=== PATIENT | female | born 1970 ===

== ENCOUNTER 2017-03-11 19:19 | Emergency (ER) | payer BC ==
[2017-03-11 19:23] VITALS: BP 137/90; PULSE 100; RESP 16; TEMP 98; O2SAT 98
[2017-03-11] MEDS ORDERED: Bacitracin 500 Units/gm Oint Foilpak UD TOP ONE (19:42)
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
== END 2017-03-11 20:44 | disposition home or self-care (01) ==
LOC: C.ER 19:19
DX: S50.02XA Contusion of left elbow, initial encounter (principal); S00.81XA Abrasion of other part of head, initial encounter; Y00.XXXA Assault by blunt object, initial encounter

== ENCOUNTER 2017-04-27 11:45 | Emergency (ER) | payer BC ==
[2017-04-27 11:56] VITALS: BMI 29.9
[2017-04-27 11:57] VITALS: TEMP 98.7
[2017-04-27] MEDS ORDERED: Sodium Chloride 0.9% 1,000 ML IV ONE (12:31)
--- NOTE | 2017-04-27 12:38 | C.PDOC ---
History Of Present Illness 47 y/o female, history of IDDM, presents to ED with c/o elevated blood sugar for the last 4 days. Patient reports blood sugar has been in the 300s and c/o intermittent headaches, urinary frequency, dry mouth, and mild nausea. Otherwise , denies fever, chills, chest pain, vomiting, SOB, or other associated symptoms. Time Seen by Provider: 04/27/17 12:20 Chief Complaint (Nursing): High Blood Sugar History Per: Patient History/Exam Limitations: no limitations Onset/Duration Of Symptoms: Days Current Symptoms Are (Timing): Still Present Current Diabetic Medications: Insulin Associated Infectious Symptoms: Urinary Frequency, Nausea. denies: Cough, Sore Throat, Vomiting, Diarrhea Recent travel outside of the [place]: No Past Medical History Reviewed: Historical Data, Nursing Documentation, Vital Signs Vital Signs: Last Vital Signs Temp 98.7 F 04/27/17 11:56 Pulse 80 04/27/17 14:17 Resp 15 04/27/17 14:17 BP 130/77 04/27/17 14:17 Pulse Ox 99 04/27/17 14:17 - Medical History PMH: Anxiety, Diabetes, HTN, Hypercholesterolemia - [facility] Procedures OTHER SKIN & SUBQ I D (08/15/13) Family History: States: Unknown Family Hx - Social History Hx Tobacco Use: No Hx Alcohol Use: No Hx Substance Use: No - Immunization History Hx Tetanus Toxoid Vaccination: No Hx Influenza Vaccination: Yes Hx Pneumococcal Vaccination: Yes Review Of Systems Except As Marked, All Systems Reviewed And Found Negative. Constitutional: Negative for: Fever, Chills Cardiovascular: Negative for: Chest Pain Respiratory: Negative for: Cough, Shortness of Breath, Wheezing Gastrointestinal: Positive for: Nausea. Negative for: Vomiting, Diarrhea Genitourinary: Positive for: Frequency Skin: Negative for: Rash Neurological: Positive for: Headache Physical Exam - Physical Exam Appears: Non-toxic, No Acute Distress Skin: Normal Color, Warm, Dry Head: Atraumatic, Normacephalic Eye(s): bilateral: Normal Inspection, EOMI Nose: Normal Oral Mucosa: Moist Lips: Normal Appearing Neck: Normal ROM Chest: Symmetrical Cardiovascular: Rhythm Regular Respiratory: Normal Breath Sounds, No Rales, No Rhonchi, No Wheezing Gastrointestinal/Abdominal: Soft, No Tenderness, No Distention, No Guarding, No Rebound, No Ascites Back: Normal Inspection, No CVA Tenderness Extremity: Bilateral: Atraumatic, Normal Color And Temperature, Normal ROM Neurological/Psych: Oriented x3, Normal Speech Gait: Steady ED Course And Treatment - Laboratory Results Result Diagrams: 04/27/17 12:48 04/27/17 12:48 Lab Interpretation: No Acute Changes O2 Sat by Pulse Oximetry: 97 (RA) Pulse Ox Interpretation: Normal Medical Decision Making Medical Decision Making: Impression: Hyperglycemia Plan: * IVFs * Bloodwork * Reassess Progress: Labs reviewed, glucose was 227. No ketones, no acidosis or signs of DKA Patient reevaluated and resting comfortably in no distress. She reports feeling better than arrival. Explained results. Patient states she has been thinking and realized she has been eating a lot of fruits which may be raising her blood sugar. I advised her to keep monitoring blood sugar and to follow up with PCP Disposition Counseled Patient/Family Regarding: Studies Performed, Diagnosis, Need For Followup - Disposition Referrals: Sonali Astudillo MD [Medical Doctor] - Disposition: HOME/ ROUTINE Disposition Time: 13:45 Condition: STABLE Additional Instructions: Follow up with your primary medical doctor or clinic in 2-5 days for further evaluation. Take your usual medications as prescribed. Return to the emergency department at any time if symptoms persist or worsen. Instructions: Diabetic Hyperglycemia (ED) Forms: [employer] (Icelandic) - POA Present On Arrival: Poor Glycemic Control - Clinical Impression Clinical Impression: Hyperglycemia - PA / WIRE WELDER / Resident Statement MD/DO has reviewed & agrees with the documentation as recorded. - Scribe Statement The provider has reviewed the documentation as recorded by the Jameel Flores All medical record entries made by the Jameel were at my direction and personally dictated by me. I have reviewed the chart and agree that the record accurately reflects my personal performance of the history, physical exam, medical decision making, and the department course for this patient. I have also personally directed, reviewed, and agree with the discharge instructions and disposition.
[2017-04-27] MEDS ORDERED: Sodium Chloride 0.9% 1,000 ML ONE (12:53)
[2017-04-27 12:57] LABS: BASO # 0.1 K/uL (0.0-0.2); BASO % 0.7 % (0.0-2.0); EOS # 0.2 K/uL (0.0-0.7); EOS % 2.2 % (0.0-4.0); HEMATOCRIT 40.4 % (34.0-47.0); LYMPH % 46.6 % (20.0-40.0); MEAN CELL VOLUME 81.1 fL (81.0-99.0); MEAN CORPUSCULAR HEMOGLOBIN 27.4 pg (27.0-31.0); MEAN CORPUSCULAR HGB CONC 33.8 g/dL (33.0-37.0); MEAN PLATELET VOLUME 8.7 fL (7.2-11.7); MONO # 0.5 K/uL (0.0-0.8); NRBC % 0.1 % (0.0-2.0); RED CELL DISTRIBUTION WIDTH 12.9 % (11.5-14.5); WHITE BLOOD COUNT 10.7 K/uL (4.8-10.8)
[2017-04-27 13:06] LABS: ALB/GLOB RATIO 1.3 (1.0-2.1); ALKALINE PHOSPHATASE 117 U/L (38-126); ALT/SGPT 97 U/L (9-52); AST/SGOT 66 U/L (14-36); BILIRUBIN,TOTAL 0.4 mg/dL (0.2-1.3); BLOOD UREA NITROGEN 14 mg/dL (7-17); CALCIUM 9.6 mg/dl (8.6-10.4); CARBON DIOXIDE 24 mmol/L (22-30); CHLORIDE 99 mmol/L (98-107); GFR AFRICAN-AMERICAN > 60; GLUCOSE,RANDOM 227 mg/dL (65-105); POTASSIUM 4.7 mmol/L (3.6-5.2); SODIUM 139 mmol/L (132-148); TOTAL PROTEIN 7.6 g/dL (6.3-8.3)
[2017-04-27 13:10] LABS: RBC URINE < 1 /hpf (0-3); URINE BACTERIA RARE (<OCC); URINE BILIRUBIN NEGATIVE (NEGATIVE); URINE BLOOD NEGATIVE (NEGATIVE); URINE COLOR Yellow (YELLOW); URINE GLUCOSE (UA) 3+ mg/dL (Normal); URINE KETONE NEGATIVE (NEGATIVE); URINE LEUKOCYTE ESTERASE NEG Leu/uL (Negative); URINE PROTEIN NEGATIVE (NEGATIVE); URINE UROBILINOGEN NORMAL mg/dL (0.2-1.0); WBC URINE 1 /hpf (0-5)
[2017-04-27 14:17] VITALS: BP 130/77; PULSE 80; RESP 15
[2017-04-28 19:43] VITALS: O2SAT 97
== END 2017-04-27 14:16 | disposition home or self-care (01) ==
LOC: C.ER 11:45
DX: E11.65 Type 2 diabetes mellitus with hyperglycemia (principal); Z79.4 Long term (current) use of insulin
CPT/HCPCS: 80053; 81001; 82009; 82948; 85025; 96360; 99284; J7040

== ENCOUNTER 2017-06-09 08:20 | Emergency (ER) | payer BC ==
[2017-06-09 08:21] VITALS: BMI 29.9
[2017-06-09 08:39] VITALS: RESP 18
[2017-06-09] MEDS ORDERED: Naproxen 550 mg Tab PO STA (09:05)
[2017-06-09] MEDS ORDERED: Naproxen 550 mg Tab PO ONE (09:11)
--- NOTE | 2017-06-09 09:40 | C.PDOC ---
History Of Present Illness 47 year old female presents to the ED complaining of right big toe pain since yesterday. She denies any falls or injuries, fever, discharge, wounds. Patient states that the toe appears swollen. She denies personal or family history of gout. Time Seen by Provider: 06/09/17 09:00 Chief Complaint (Nursing): Lower Extremity Problem/Injury History Per: Patient History/Exam Limitations: no limitations Onset/Duration Of Symptoms: Days Current Symptoms Are (Timing): Still Present Severity: Mild Past Medical History Reviewed: Historical Data, Nursing Documentation, Vital Signs Vital Signs: Last Vital Signs Temp 98 F 06/09/17 09:45 Pulse 80 06/09/17 09:45 Resp 18 06/09/17 09:45 BP 140/80 06/09/17 09:45 Pulse Ox 100 06/09/17 10:53 - Medical History PMH: Anxiety, Diabetes, HTN, Hypercholesterolemia - [facility] Procedures OTHER SKIN & SUBQ I D (08/15/13) Family History: States: No Known Family Hx - Social History Hx Tobacco Use: No Hx Alcohol Use: No Hx Substance Use: No - Immunization History Hx Tetanus Toxoid Vaccination: No Hx Influenza Vaccination: Yes Hx Pneumococcal Vaccination: Yes Review Of Systems Except As Marked, All Systems Reviewed And Found Negative. Constitutional: Negative for: Fever Cardiovascular: Negative for: Chest Pain, Palpitations Respiratory: Negative for: Cough, Shortness of Breath Musculoskeletal: Positive for: Other (Toe pain) Skin: Negative for: Rash Neurological: Negative for: Weakness, Numbness Physical Exam - Physical Exam Appears: Well, Non-toxic, No Acute Distress Skin: Normal Color, Warm, Dry, No Rash Head: Normacephalic Oral Mucosa: Moist Cardiovascular: Rhythm Regular Respiratory: Normal Breath Sounds, No Rales, No Rhonchi, No Wheezing Extremity: No Calf Tenderness, Capillary Refill (< 2 sec all digits ), No Deformity, Other (Right big toe is mildly swollen at the MTP joint, mildly tender to palpation, no erythema or warmth to touch, no paronychia or wounds) Extremity: Bilateral: Normal ROM Pulses: Left Dorsalis Pedis: Normal, Right Dorsalis Pedis: Normal Neurological/Psych: Oriented x3, Normal Sensation Gait: Steady ED Course And Treatment O2 Sat by Pulse Oximetry: 100 (RA) Pulse Ox Interpretation: Normal - Other Rad toe Xray X-Ray: Interpreted by Me, Viewed By Me (no fractures/dislocations) Progress Note: Xray of right foot ordered and reviewed. Patient given PO naprosyn. Xray (-) for fracture/dislocation/arthritic changes. Differential diagnoses include toe sprain vs gout vs paronychia vs diabetic foot wound. No wounds/paronychias seen, and patient without known h/o gout. Will give Rx for Naprosyn, and instructed her to follow up with podiatry (she has private overhead crane operator). Patient understands she should return to ED if her symptoms worsen. Reevaluation Time: 09:40 Reassessment Condition: Improved (Patient's pain improved, and she is ambulating normally in ED.) Disposition Counseled Patient/Family Regarding: Studies Performed, Diagnosis, Need For Followup, Rx Given - Disposition Referrals: Podiatry Clinic [Outside] Sonali Astudillo MD [Medical Doctor] - Disposition: HOME/ ROUTINE Disposition Time: 09:40 Condition: STABLE Additional Instructions: FOLLOW UP WITH PODIATRY CLINIC IN 1-2 DAYS USE MEDICATION NEEDED RETURN TO ER IF SYMPTOMS WORSEN Prescriptions: Naproxen [Naprosyn] 1 tab PO BID PRN #25 tab PRN Reason: Pain Instructions: Arthralgia (ED) Forms: [facility] (Sierra Leonean), Work Excuse Print Language: CZECH - POA Present On Arrival: None - Clinical Impression Clinical Impression: Toe pain, right - Scribe Statement The provider has reviewed the documentation as recorded by the Jameel Welsh Provider Attestation: All medical record entries made by the Jameel were at my direction and personally dictated by me. I have reviewed the chart and agree that the record accurately reflects my personal performance of the history, physical exam, medical decision making, and the department course for this patient. I have also personally directed, reviewed, and agree with the discharge instructions and disposition.
[2017-06-09 09:51] VITALS: BP 140/80; PULSE 80; TEMP 98
[2017-06-09 10:50] VITALS: O2SAT 100
--- NOTE | 2017-06-09 12:52 | RAD ---
PROCEDURE: Radiographs of the right great toe. TECHNIQUE:: AP radiograph of the right foot, with oblique and lateral view of the right great toe. COMPARISON: None. FINDINGS: BONES: No fracture destructive from lesion is seen related to the great toe. Joint space narrowing the 1st metatarsophalangeal joint indicates degenerative joint disease as well as throughout the incidentally captured interphalangeal joints of the remaining digits in the AP view of the right foot. JOINTS: As above. SOFT TISSUES: Soft edema in the mid to distal great toe was question without emphysematous change or retained radiodense foreign body. OTHER FINDINGS: None. IMPRESSION: Questionable edema in the distal and mid great toe soft tissues however no fracture or subluxation/dislocation is seen. degenerative changes seen throughout the 1st metatarsophalangeal joint as well as throughout the interphalangeal joints of the 2nd through 5th digits.
== END 2017-06-09 09:45 | disposition home or self-care (01) ==
LOC: C.ER 08:20
DX: M79.674 Pain in right toe(s) (principal)

== ENCOUNTER 2018-10-26 10:53 | Emergency (ER) | payer BC ==
[2018-10-26 10:54] VITALS: BMI 29.9
--- NOTE | 2018-10-26 11:34 | C.PDOC ---
History Of Present Illness 48 y/o female pt with hx of partial hysterectomy presents to the ER c/o diffuse and epigastric abdominal pain that started last night. Pt reports abdominal pain is throbbing and non-radiating. No right upper quadrant pain, Associated sx includes multiple episodes of vomiting. She denies trauma, fall, black/bloody stool, constipation, diarrhea or urinary sx. Pt notes vomiting had the rice she ate last night but now is yellow. No recent travel abroad, no new or exotic foods. Pt has no other associated sx or complaints at this time. Time Seen by Provider: 10/26/18 11:34 Chief Complaint (Nursing): Abdominal Pain History Per: Patient History/Exam Limitations: no limitations Onset/Duration Of Symptoms: Days (x1) Current Symptoms Are (Timing): Still Present Location Of Pain/Discomfort: Diffuse, Epigastric Past Medical History Reviewed: Historical Data, Nursing Documentation, Vital Signs Vital Signs: Last Vital Signs Temp 98.8 F 10/26/18 11:04 Pulse 88 10/26/18 11:04 Resp 18 10/26/18 11:04 BP 155/90 H 10/26/18 11:04 Pulse Ox 98 10/26/18 11:04 - Medical History PMH: Anxiety, Diabetes, HTN, Hypercholesterolemia - [facility] Procedures OTHER SKIN & SUBQ I D (08/15/13) Family History: States: Unknown Family Hx - Social History Hx Tobacco Use: No Hx Alcohol Use: No Hx Substance Use: No - Immunization History Hx Tetanus Toxoid Vaccination: No Hx Influenza Vaccination: Yes Hx Pneumococcal Vaccination: Yes Review Of Systems Constitutional: Negative for: Fever, Chills, Weakness, Other (trauma or fall ) Eyes: Negative for: Pain, Vision Change, Conjunctivae Inflammation ENT: Negative for: Ear Pain, Nose Pain, Nose Discharge, Nose Congestion, Mouth Pain, Mouth Swelling, Throat Pain Cardiovascular: Negative for: Chest Pain, Palpitations Respiratory: Negative for: Cough, Shortness of Breath, Hemoptysis, SOB with Excertion, Pleuritic Pain Gastrointestinal: Positive for: Vomiting, Abdominal Pain (epigastric and diffuse ). Negative for: Diarrhea, Constipation, Melena, Hematochezia Genitourinary: Negative for: Dysuria, Frequency, Incontinence, Hematuria Musculoskeletal: Negative for: Neck Pain, Shoulder Pain, Arm Pain Skin: Negative for: Rash Neurological: Negative for: Weakness, Numbness Psych: Negative for: Anxiety, Depression Physical Exam - Physical Exam Appears: Well, Non-toxic, No Acute Distress Skin: Warm, Dry Head: Normacephalic, No Swelling, No Abrasion, No Laceration Eye(s): bilateral: Normal Inspection, PERRL, EOMI Nose: Normal Oral Mucosa: Moist Tongue: Normal Appearing Lips: Normal Appearing Teeth: Normal Dentition Gingiva: Normal Appearing Throat: Normal, No Erythema, No Exudate Neck: Normal, Normal ROM, Trachea Midline, Supple, No Other (meningeal signs; negative for kernig's and brudzinski's) Chest: Symmetrical Cardiovascular: Rhythm Regular, No Friction Rub Respiratory: Normal Breath Sounds, No Rales, No Rhonchi, No Wheezing Gastrointestinal/Abdominal: Soft, Tenderness (epigastric and periumbilical ), No Mass, No Distention, No Guarding, No Rebound, No Hernia Back: Normal Inspection, No CVA Tenderness, No Vertebral Tenderness Extremity: Bilateral: Normal Color And Temperature Pulses: Left Dorsalis Pedis: Normal, Right Dorsalis Pedis: Normal Neurological/Psych: Oriented x3, Normal Speech, Normal Cognition Gait: Steady ED Course And Treatment - Laboratory Results Result Diagrams: 10/26/18 11:58 10/26/18 11:58 O2 Sat by Pulse Oximetry: 98 (RA) Pulse Ox Interpretation: Normal - CT Scan/US RUQ US Other Rad Studies (CT/US): Interpreted By Me, Read By Radiologist CT/US Interpretation: Accession No. : [id number]. Patient Name / ID : LETICIA ROMERO / [id number]. Exam Date : 10/26/2018 13:28:20 ( Approved ). Study Comment : Sex / Age : F / 48Y. Creator : Kimberly Meade MD. Dictator : Kimberly Meade MD. Clasp Machine Operator : Sludge Filtration Attendant : Kimberly Meade MD. Approver2 : Report Date : 10/26/2018 13:52:28. My Comment : . This report is currently processing and HAS NOT BEEN OFFICIALLY SIGNED BY THE PHYSICIAN - ESTIMATED TIME OF APPROVAL IS 10/26/2018 13:57. Date of service: 10/26/2018. HISTORY: epigastic pain. COMPARISON: CT abdomen and pelvis without contrast performed 07/19/15. TECHNIQUE: Sonographic evaluation of the right upper quadrant of the abdomen. FINDINGS: LIVER: Measures 15.7 cm in length. Echogenic liver may be seen in setting of hepatic parenchymal disease or fatty infiltration. No focal hepatic mass identified. The main portal vein appears patent with normal directional flow. No intrahepatic bile duct dilatation. GALLBLADDER: No gallstones. No gallbladder wall thickening or pericholecystic edema. Negative sonographic Ann's sign as assessed by the recruiting and selection consultant. COMMON BILE DUCT: Measures 3 mm. PANCREAS: Not well-visualized. RIGHT KIDNEY: Measures approximately 12.5 x 5.2 x 5.5 cm. No obstructing calculus or hydronephrosis identified. AORTA: Limited visualization appears grossly unremarkable. IVC: Limited visualization appears grossly unremarkable. OTHER FINDINGS: None . IMPRESSION: Echogenic liver may be seen in setting of hepatic parenchymal disease or fatty infiltration. Abdomen/Pelvis CT Other Rad Studies (CT/US): Interpreted By Me, Read By Radiologist CT/US Interpretation: Accession No. : [id number]. Patient Name / ID : LETICIA ROMERO / [id number]. Exam Date : 10/26/2018 13:46:15 ( Approved ). Study Comment : Sex / Age : F / 48Y. Creator : Tiffanie Lam. Dictator : Aleksey Scott MD. Clasp Machine Operator : Sludge Filtration Attendant : Aleksey Scott MD. Approver2 : Report Date : 10/26/2018 14:09:03. My Comment : . Date of service: 10/26/2018. PROCEDURE: CT Abdomen and Pelvis with contrast. HISTORY: abd pain, diffuse. COMPARISON: Not available. TECHNIQUE: Contrast dose: 100 mL Visipaque 320. Radiation dose: Total exam DLP = 1164.9 mGy-cm. This CT exam was performed using one or more of the following dose reduction techniques: Automated exposure control, adjustment of the mA and/or kV according to patient size, and/or use of iterative reconstruction technique. FINDINGS: LOWER THORAX: Unremarkable. LIVER: Mild hepatomegaly. Diffusely diminished attenuation consistent with fatty infiltration. Smooth contour. No mass. No biliary dilatation. There is high attenuation seen about the gallbladder fossa likely reflecting focal fatty sparing. GALLBLADDER AND BILE DUCTS: Unremarkable. PANCREAS: Unremarkable. No gross lesion or ductal dilatation. SPLEEN: Unremarkable. ADRENALS: Unremarkable. No mass. KIDNEYS AND URETERS: Unremarkable. No hydronephrosis. No solid mass. VASCULATURE: Unremarkable. No aortic aneurysm. No aortic atherosclerotic calcification or mural plaque present. BOWEL: Unremarkable. No obstruction. No gross mural thickening. APPENDIX: Normal appendix. PERITONEUM: Unremarkable. No free fluid. No free air. LYMPH NODES: Unremarkable. No enlarged lymph nodes. BLADD ER: Unremarkable. REPRODUCTIVE: Hysterectomy. BONES: No acute fracture. OTHER FINDINGS: None. IMPRESSION: Mild hepatomegaly. Fatty infiltration of the liver. Probable focal fatty sparing about the gallbladder fossa. No additional abnormality identified. Not positively identified. No secondary findings to suggest acute appendicitis. Medical Decision Making Medical Decision Makin48 year old male p/w abdominal pain, without trauma or fall. Diffuse abdominal pain w/ nausea and vomiting. No complaints. No stool abnl. No back pain. appendicitis vs Gastritis Plans: -- chem labs -- blood work -- EKG -- CT abdomen -- IV fluids -- pepcid -- Zofran 1500 mildly elevated lipase, lfts abdomen re-exam, non-ttp. No RUQ pain No signs of appendicits or pancreatitis on CT tolerating clears clear for d/c home with return indications and followup pt agreeable to plan. Disposition - Disposition Referrals: Onur Irving MD [Staff Provider] - [facility] [Outside] [facility] [Outside] [facility] [Outside] Disposition: HOME/ ROUTINE Disposition Time: 15:00 Condition: GOOD Additional Instructions: HEATHER KELLY, thank you for letting us take care of you today. Your provider was Gilson Valenzuela and you were treated for VOMITING. The emergency medical care you received today was directed at your acute symptoms. If you were prescribed any medication, please fill it and take as directed. It may take several days for your symptoms to resolve. Return to the Emergency Department if your symptoms worsen, do not improve, or if you have any other problems. Please contact your doctor or call one of the physicians/clinics you have been referred to that are listed on the Patient Visit Information form that is included in your discharge packet. Bring any paperwork you were given at discharge with you along with any medications you are taking to your follow up visit. Our treatment cannot replace ongoing medical care by a primary care provider outside of the emergency department. Thank you for allowing the [facility] team to be part of your care today. If you had an X-Ray or CT scan: A Radiologist will review the ED reading if any change in treatment is needed we will contact you. If you had a blood, urine, or wound culture: It will take several days for the results, if any change in treatment is needed we will contact you. If you had an STI test: It will take 48 hours for the results. Please call after 1 week if you have not heard back. Prescriptions: Famotidine [Pepcid] 20 mg PO Q12H PRN 2 Days #4 tab PRN Reason: Dyspepsia Instructions: Gastritis (DC) Forms: [employer] ([place] Islander), Work Excuse - Clinical Impression Clinical Impression: LFT elevation, Gastritis - Scribe Statement The provider has reviewed the documentation as recorded by the Scribdat [place] Do Provider Attestation: All medical record entries made by the Scribe were at my direction and personally dictated by me. I have reviewed the chart and agree that the record accurately reflects my personal performance of the history, physical exam, medical decision making, and the department course for this patient. I have also personally directed, reviewed, and agree with the discharge instructions and d isposition.
[2018-10-26 11:35] LABS: HCG,QUALITATIVE URINE NEGATIVE (NEGATIVE)
[2018-10-26 11:51] LABS: SQUAMOUS EPITHIAL 7 /hpf (0-5); URINE BACTERIA RARE (<OCC); URINE BILIRUBIN NEGATIVE (NEGATIVE); URINE BLOOD NEGATIVE (NEGATIVE); URINE CLARITY Hazy (Clear); URINE COLOR Yellow (YELLOW); URINE GLUCOSE (UA) 1+ mg/dL (Normal); URINE LEUKOCYTE ESTERASE NEG Leu/uL (Negative); URINE PROTEIN 2+ mg/dL (NEGATIVE); URINE UROBILINOGEN NORMAL mg/dL (0.2-1.0)
[2018-10-26] MEDS ORDERED: Sodium Chloride 0.9% 1,000 ML IV ONE (11:54)
[2018-10-26 12:07] LABS: BASO % 0.3 % (0.0-2.0); EOS # 0.1 K/uL (0.0-0.7); EOS % 1.1 % (0.0-4.0); LYMPH # 1.5 K/uL (1.0-4.3); MEAN CELL VOLUME 82.7 fL (81.0-99.0); MEAN CORPUSCULAR HEMOGLOBIN 27.2 pg (27.0-31.0); MEAN CORPUSCULAR HGB CONC 32.9 g/dL (33.0-37.0); MEAN PLATELET VOLUME 9.6 fL (7.2-11.7); MONO # 0.4 K/uL (0.0-0.8); MONO % 3.4 % (0.0-10.0); NEUT # 10.4 K/uL (1.8-7.0); NEUT % 83.2 % (50.0-75.0); NRBC % 0.1 % (0.0-2.0); RBC 5.53 Mil/uL (3.80-5.20); RED CELL DISTRIBUTION WIDTH 13.5 % (11.5-14.5); WHITE BLOOD COUNT 12.5 K/uL (4.8-10.8)
[2018-10-26 12:28] LABS: ALB/GLOB RATIO 1.4 (1.0-2.1); ALBUMIN 4.7 g/dL (3.5-5.0); ALT/SGPT 123 U/L (9-52); AST/SGOT 152 U/L (14-36); BLOOD UREA NITROGEN 16 mg/dL (7-17); CALCIUM 9.3 mg/dl (8.6-10.4); GFR NON-AFRICAN AMERICAN > 60; LIPASE 346 U/L (23-300)
[2018-10-26] MEDS ORDERED: Iodixanol 320 MG/ML 100 ML BOTTLE IV ONE (13:45)
--- NOTE | 2018-10-26 13:56 | US ---
Date of service: 10/26/2018 HISTORY: epigastic pain COMPARISON: CT abdomen and pelvis without contrast performed 07/19/15 TECHNIQUE: Sonographic evaluation of the right upper quadrant of the abdomen. FINDINGS: LIVER: Measures 15.7 cm in length. Echogenic liver may be seen in setting of hepatic parenchymal disease or fatty infiltration. No focal hepatic mass identified. The main portal vein appears patent with normal directional flow. No intrahepatic bile duct dilatation. GALLBLADDER: No gallstones. No gallbladder wall thickening or pericholecystic edema. Negative sonographic Ann's sign as assessed by the wire setter. COMMON BILE DUCT: Measures 3 mm. PANCREAS: Not well-visualized. RIGHT KIDNEY: Measures approximately 12.5 x 5.2 x 5.5 cm. No obstructing calculus or hydronephrosis identified. AORTA: Limited visualization appears grossly unremarkable. IVC: Limited visualization appears grossly unremarkable. OTHER FINDINGS: None . IMPRESSION: Echogenic liver may be seen in setting of hepatic parenchymal disease or fatty infiltration.
--- NOTE | 2018-10-26 14:34 | CT ---
Date of service: 10/26/2018 PROCEDURE: CT Abdomen and Pelvis with contrast HISTORY: abd pain, diffuse COMPARISON: Not available TECHNIQUE: Contrast dose: 100 mL Visipaque 320 Radiation dose: Total exam DLP = 1164.9 mGy-cm. This CT exam was performed using one or more of the following dose reduction techniques: Automated exposure control, adjustment of the mA and/or kV according to patient size, and/or use of iterative reconstruction technique. FINDINGS: LOWER THORAX: Unremarkable. LIVER: Mild hepatomegaly. Diffusely diminished attenuation consistent with fatty infiltration. Smooth contour. No mass. No biliary dilatation. There is high attenuation seen about the gallbladder fossa likely reflecting focal fatty sparing. GALLBLADDER AND BILE DUCTS: Unremarkable. PANCREAS: Unremarkable. No gross lesion or ductal dilatation. SPLEEN: Unremarkable. ADRENALS: Unremarkable. No mass. KIDNEYS AND URETERS: Unremarkable. No hydronephrosis. No solid mass. VASCULATURE: Unremarkable. No aortic aneurysm. No aortic atherosclerotic calcification or mural plaque present. BOWEL: Unremarkable. No obstruction. No gross mural thickening. APPENDIX: Normal appendix. PERITONEUM: Unremarkable. No free fluid. No free air. LYMPH NODES: Unremarkable. No enlarged lymph nodes. BLADDER: Unremarkable. REPRODUCTIVE: Hysterectomy BONES: No acute fracture. OTHER FINDINGS: None. IMPRESSION: Mild hepatomegaly. Fatty infiltration of the liver. Probable focal fatty sparing about the gallbladder fossa. No additional abnormality identified. Not positively identified. No secondary findings to suggest acute appendicitis.
[2018-10-26 15:19] VITALS: BP 129/77; PULSE 87; RESP 20; TEMP 99
[2018-10-26 18:10] VITALS: O2SAT 98
== END 2018-10-26 15:18 | disposition home or self-care (01) ==
LOC: C.ER 10:53
DX: K29.70 Gastritis, unspecified, without bleeding (principal); R79.89 Other specified abnormal findings of blood chemistry; I10 Essential (primary) hypertension; E78.00 Pure hypercholesterolemia, unspecified; Z87.891 Personal history of nicotine dependence
CPT/HCPCS: 74177; 76705; 80053; 81001; 83690; 84484; 84703; 85025; 96361; 96374; 96375; 99284; J2405; J7030; Q9967

== ENCOUNTER 2018-12-22 09:51 | Observation (INO) | payer BC ==
[2018-12-22 09:51] VITALS: BMI 29.9
[2018-12-22] MEDS ORDERED: Bacitracin 500 Units/gm Oint Foilpak UD TOP STA (10:37)
[2018-12-22] MEDS ORDERED: Sodium Chloride 0.9% 1,000 ML IV STA ×2 (10:48→13:41)
[2018-12-22] MEDS ORDERED: (Novolin R) Insulin Human Regular 100 units/ml vial IVP ONE (10:49)
[2018-12-22] MEDS ORDERED: (Novolin R) Insulin Human Regular 100 units/ml vial ONE ×2 (11:05→13:55)
[2018-12-22] MEDS ORDERED: Sodium Chloride 0.9% 1,000 ML ONE (11:06)
[2018-12-22 11:20] LABS: BASO # 0.1 K/uL (0.0-0.2); BASO % 0.6 % (0.0-2.0); EOS % 0.1 % (0.0-4.0); HEMOGLOBIN 13.8 g/dL (11.0-16.0); LYMPH # 2.9 K/uL (1.0-4.3); LYMPH % 19.9 % (20.0-40.0); MEAN CELL VOLUME 81.5 fL (81.0-99.0); MEAN CORPUSCULAR HEMOGLOBIN 27.4 pg (27.0-31.0); MEAN CORPUSCULAR HGB CONC 33.7 g/dL (33.0-37.0); NEUT # 10.6 K/uL (1.8-7.0); NEUT % 72.4 % (50.0-75.0); RBC 5.02 Mil/uL (3.80-5.20); RED CELL DISTRIBUTION WIDTH 13.9 % (11.5-14.5); WHITE BLOOD COUNT 14.7 K/uL (4.8-10.8)
[2018-12-22 11:22] LABS: SQUAMOUS EPITHIAL 6 /hpf (0-5); URINE AMORPHOUS SEDIMENT FEW /ul (<OCC); URINE BILIRUBIN NEGATIVE (NEGATIVE); URINE BLOOD 3+ (NEGATIVE); URINE CLARITY Hazy (Clear); URINE COLOR Amber (YELLOW); URINE GLUCOSE (UA) 3+ mg/dL (Normal); URINE LEUKOCYTE ESTERASE NEG Leu/uL (Negative); URINE PROTEIN 2+ mg/dL (NEGATIVE); URINE UROBILINOGEN NORMAL mg/dL (0.2-1.0)
[2018-12-22 11:48] LABS: ALB/GLOB RATIO 1.5 (1.0-2.1); ALBUMIN 4.5 g/dL (3.5-5.0); ALT/SGPT 236 U/L (9-52); AST/SGOT 1115 U/L (14-36); BLOOD UREA NITROGEN 15 mg/dL (7-17); GFR NON-AFRICAN AMERICAN > 60
--- NOTE | 2018-12-22 11:48 | RAD ---
Date of service: 12/22/2018 PROCEDURE: Radiographs of the Lumbar Spine. HISTORY: left sided pain COMPARISON: No prior. TECHNIQUE: Three views obtained. FINDINGS: BONES: Normal alignment. No listhesis. No fracture. DISC SPACES: Unremarkable. OTHER FINDINGS: None. IMPRESSION: No evidence of acute pathology in the lumbar spine. Mild constipation.
--- NOTE | 2018-12-22 12:22 | CT ---
Date of service: 12/22/2018 PROCEDURE: CT Abdomen and Pelvis without intravenous contrast HISTORY: left flank pain COMPARISON: Comparison is made with 10/26/2018 TECHNIQUE: axial and reformatted coronal and sagittal CT images of the abdomen and pelvis were obtained without IV or oral contrast administration.. Contrast dose: 0 Radiation dose: Total exam DLP = 1154.81 mGy-cm. This CT exam was performed using one or more of the following dose reduction techniques: Automated exposure control, adjustment of the mA and/or kV according to patient size, and/or use of iterative reconstruction technique. FINDINGS: LOWER THORAX: No evidence of acute pathology at the lung bases. No evidence of pleural effusion. LIVER: [id number] hepatomegaly and moderate diffuse attenuation of the liver suggestive of hepatic steatosis are again noted. GALLBLADDER AND BILE DUCTS: Unremarkable. PANCREAS: Unremarkable. No gross lesion or ductal dilatation. SPLEEN: Unremarkable. ADRENALS: Unremarkable. No mass. KIDNEYS AND URETERS: No evidence of obstructing renal calculi. 2 millimeter nonobstructing calculus at the lower pole of the left kidney is noted. No evidence of significant hydronephrosis or perinephric stranding. The ureters are not dilated. VASCULATURE: Unremarkable. No aortic aneurysm. No aortic atherosclerotic calcification or mural plaque present. BOWEL: Unremarkable. No obstruction. No gross mural thickening. APPENDIX: Unremarkable. Normal appendix. PERITONEUM: Unremarkable. No free fluid. No free air. LYMPH NODES: Unremarkable. No enlarged lymph nodes. BLADDER: Unremarkable. REPRODUCTIVE: Unremarkable. BONES: No acute fracture. OTHER FINDINGS: None. IMPRESSION: 2 millimeter nonobstructing calculus at the lower pole of the left kidney noted. No evidence of hydronephrosis or hydroureter. No significant interval changes noted since the prior study.
--- NOTE | 2018-12-22 13:01 | C.PDOC ---
History Of Present Illness 48 y/o female presents to ED complaining of pain to her left lower back that is radiating down to her buttock. Patient states she has history of kidney stone and kidney infection. She denies dysuria, hematuria, abdominal pain, or other symptoms. Time Seen by Provider: 12/22/18 10:17 Chief Complaint (Nursing): Female Genitourinary History Per: Patient History/Exam Limitations: no limitations Onset/Duration Of Symptoms: Days Current Symptoms Are (Timing): Still Present Past Medical History Reviewed: Historical Data, Nursing Documentation, Vital Signs Vital Signs: Last Vital Signs Temp 97.8 F 12/22/18 10:00 Pulse 93 H 12/22/18 10:00 Resp 16 12/22/18 10:00 BP 150/84 12/22/18 10:00 Pulse Ox 98 12/22/18 10:00 Primary Care Provider: Sonali Astudillo - Medical History PMH: Anxiety, Diabetes, HTN, Hypercholesterolemia - [facility] Procedures OTHER SKIN & SUBQ I D (08/15/13) Family History: States: No Known Family Hx - Social History Hx Tobacco Use: No Hx Alcohol Use: No Hx Substance Use: No - Immunization History Hx Tetanus Toxoid Vaccination: No Hx Influenza Vaccination: Yes Hx Pneumococcal Vaccination: Yes Review Of Systems Except As Marked, All Systems Reviewed And Found Negative. Constitutional: Negative for: Fever Gastrointestinal: Negative for: Nausea, Vomiting, Abdominal Pain Genitourinary: Negative for: Dysuria, Hematuria Musculoskeletal: Positive for: Back Pain (left lower back radiating down to buttock). Negative for: Leg Pain Physical Exam - Physical Exam Appears: Non-toxic, No Acute Distress Skin: Warm, Dry Head: Atraumatic Eye(s): bilateral: Normal Inspection Oral Mucosa: Moist Neck: Supple Cardiovascular: Rhythm Regular Respiratory: Normal Breath Sounds Back: Paraspinal Tenderness, Other (Pain with movement) Extremity: Bilateral: Atraumatic, Normal Color And Temperature Neurological/Psych: Oriented x3, Normal Speech, Normal Motor, Normal Sensation ED Course And Treatment - Laboratory Results Result Diagrams: 12/22/18 11:12 12/22/18 11:12 Lab Results: Total Bilirubin 0.7 mg/dL (0.2-1.3) 12/22/18 11:12 AST 1115 U/L (14-36) H 12/22/18 11:12 ALT 236 U/L (9-52) H D 12/22/18 11:12 Alkaline Phosphatase 145 U/L (38-126) H 12/22/18 11:12 Total Protein 7.6 g/dL (6.3-8.3) 12/22/18 11:12 Albumin 4.5 g/dL (3.5-5.0) 12/22/18 11:12 Globulin 3.1 gm/dL (2.2-3.9) 12/22/18 11:12 Albumin/Globulin Ratio 1.5 (1.0-2.1) 12/22/18 11:12 Urine Color Jeni (YELLOW) 12/22/18 11:06 Urine Clarity Hazy (Clear) 12/22/18 11:06 Urine pH 5.0 (5.0-8.0) 12/22/18 11:06 Ur Specific [place] 1.031 (1.003-1.030) H 12/22/18 11:06 Urine Protein 2+ mg/dL (NEGATIVE) H 12/22/18 11:06 Urine Glucose (UA) 3+ mg/dL (Normal) H 12/22/18 11:06 Urine Ketones Trace mg/dL (NEGATIVE) 12/22/18 11:06 Urine Blood 3+ (NEGATIVE) H 12/22/18 11:06 Urine Nitrate Negative (NEGATIVE) 12/22/18 11:06 Urine Bilirubin Negative (NEGATIVE) 12/22/18 11:06 Urine Urobilinogen Normal mg/dL (0.2-1.0) 12/22/18 11:06 Ur Leukocyte Esterase Neg Juvencio/uL (Negative) 12/22/18 11:06 Urine WBC (Auto) 5 /hpf (0-5) 12/22/18 11:06 Urine RBC (Auto) 56 /hpf (0-3) H 12/22/18 11:06 Ur Squamous Epith Cells 6 /hpf (0-5) H 12/22/18 11:06 Amorphous Sediment Few /ul (<OCC) H 12/22/18 11:06 O2 Sat by Pulse Oximetry: 98 (RA) Pulse Ox Interpretation: Normal - Other Rad Lumbar Spine XR X-Ray: Read By Radiologist Interpretation: FINDINGS: BONES: Normal alignment. No listhesis. No fracture. DISC SPACES: Unremarkable. OTHER FINDINGS: None. IMPRESSION: No evidence of acute pathology in the lumbar spine. Mild constipation. - CT Scan/US Abd/Pel CT Other Rad Studies (CT/US): Read By Radiologist, Radiology Report Reviewed CT/US Interpretation: FINDINGS: LOWER THORAX: No evidence of acute pathology at the lung bases. No evidence of pleural effusion. LIVER: [id number] hepatomegaly and moderate diffuse attenuation of the liver suggestive of hepatic steatosis are again noted. GALLBLADDER AND BILE DUCTS: Unremarkable. PANCREAS: Unremarkable. No gross lesion or ductal dilatation. SPLEEN: Unremarkable. ADRENALS: Unremarkable. No mass. KIDNEYS AND URETERS: No marcie dence of obstructing renal calculi. 2 millimeter nonobstructing calculus at the lower pole of the left kidney is noted. No evidence of significant hydronephrosis or perinephric stranding. The ureters are not dilated. VASCULATURE: Unremarkable. No aortic aneurysm. No aortic atherosclerotic calci fication or mural plaque present. BOWEL: Unremarkable. No obstruction. No gross mural thickening. APPENDIX: Unremarkable. Normal appendix. PERITONEUM: Unremarkable. No free fluid. No free air. LYMPH NODES: Unremarkable. No enlarged lymph nodes. BLADDER: Unremarkable. REPRODUCTIVE: Unremarkable. BONES: No acute fracture. OTHER FINDINGS: None. IMPRESSION: 2 millimeter nonobstructing calculus at the lower pole of the left kidney noted. No evidence of hydronephrosis or hydroureter. No significant interval changes noted since the prior study. US of abdomen Other Rad Studies (CT/US): Read By Radiologist, Radiology Report Reviewed CT/US Interpretation: Accession No. : [id number]. Patient Name / ID : LETICIA ROMERO / [id number]. Exam Date : 12/22/2018 14:24:03 ( Approved ). Study Comment : Sex / Age : F / 48Y. Creator : Anaya Mays MD. Dictator : Anaya Mays MD. Batching Operator : Tmh Teacher : Anaya Mays MD. Approver2 : Report Date : 12/22/2018 15:36:39. My Comment : . Date of service: 12/22/2018. HISTORY: abnormal LFT. COMPARISON: Comparison is made to the previous CT of the abdomen and pelvis dated 12/22/2018. TECHNIQUE: Sonographic evaluation of the right upper quadrant of the abdomen. FINDINGS: LIVER: Measures 16 cm in length. Mild increased echogenicity of the liver parenchyma. No mass. No intrahepatic bile duct dilatation. GALLBLADDER: Unremarkable. No gallstones. COMMON BILE DUCT: Measures 4 mm. No stones. No dilatation. PANCREAS: Unremarkable as visualized. No mass. No ductal dilatation. RIGHT KIDNEY: Measures 11.8 x 4.8 x 5.2 cm in length. Normal echogenicity. No calculus, mass, or hydronephrosis. AORTA: No aneurysmal dilatation. IVC: Unremarkable. OTHER FINDINGS: None . IMPRESSION: Echogenic liver suggestive of hepatic steatosis. No evidence of cholelithiasis or cholecystitis. Progress Note: LS Spine XR and abdomen/Pelvis CT ordered. Labs and UA ordered and reviewed. Urine shows some blood. Patient is found to have high glucose level, patientis known IDDM who sts she is taking Metformin and Insulin every day as instructed. Patient is given IV fluids and insulin. CMp with significant LFTs abnormalities. RUQ US and Hepatitis profile ordered. On re-evaluation she still has elevated BS, and c/o significant pain in the left flank. Rocephin IV started and patient was placed to [place] for observation for IV abx. Case was d/w who accepted patient to his service for observation. Disposition - Disposition Disposition: HOSPITALIZED Disposition Time: 16:41 Condition: FAIR - Clinical Impression Clinical Impression: Hyperglycemia, Abnormal LFTs (liver function tests), Pyelonephritis - PA / [employer] / Resident Statement MD/DO has reviewed & agrees with the documentation as recorded. - Scribe Statement The provider has reviewed the documentation as recorded by the Scribe Jaclyn Ayoub All medical record entries made by the Scribe were at my direction and personally dictated by me. I have reviewed the chart and agree that the record accurately reflects my personal performance of the history, physical exam, medical decision making, and the department course for this patient. I have also personally directed, reviewed, and agree with the discharge instructions and disposition. Decision To Admit - Pt Status Changed To: Hospital Disposition Of: Observation - . Bed Request Type: Regular Admitting Physician: Jeff Spear Patient Diagnosis: Hyperglycemia, Abnormal LFTs (liver function tests), Pyelonephritis
[2018-12-22] MEDS ORDERED: (Novolin R) Insulin Human Regular 100 units/ml vial IVP STA (13:41)
[2018-12-22 13:58] LABS: HEPATITIS B SURFACE AG Negative (NEGATIVE)
[2018-12-22 14:03] LABS: HEPATITIS A IGM NEGATIVE (NEGATIVE); HEPATITIS B CORE AB NEGATIVE (NEGATIVE)
[2018-12-22 14:15] LABS: HEPATITIS C ANTIBODY NEGATIVE (NEGATIVE)
[2018-12-22 14:15] LABS: LIPASE 90 U/L (23-300)
--- NOTE | 2018-12-22 15:40 | US ---
Date of service: 12/22/2018 HISTORY: abnormal LFT COMPARISON: Comparison is made to the previous CT of the abdomen and pelvis dated 12/22/2018 TECHNIQUE: Sonographic evaluation of the right upper quadrant of the abdomen. FINDINGS: LIVER: Measures 16 cm in length. Mild increased echogenicity of the liver parenchyma. No mass. No intrahepatic bile duct dilatation. GALLBLADDER: Unremarkable. No gallstones. COMMON BILE DUCT: Measures 4 mm. No stones. No dilatation. PANCREAS: Unremarkable as visualized. No mass. No ductal dilatation. RIGHT KIDNEY: Measures 11.8 x 4.8 x 5.2 cm in length. Normal echogenicity. No calculus, mass, or hydronephrosis. AORTA: No aneurysmal dilatation. IVC: Unremarkable. OTHER FINDINGS: None . IMPRESSION: Echogenic liver suggestive of hepatic steatosis. No evidence of cholelithiasis or cholecystitis.
--- NOTE | 2018-12-22 19:35 | CP.PCM.HP ---
Past Patient History - Infectious Disease Hx of Infectious Diseases: None - Past Social History Smoking Status: Former Smoker - CARDIAC Hx Hypercholesterolemia: Yes Hx Hypertension: Yes - ENDOCRINE/METABOLIC Hx Endocrine Disorders: Yes Hx Diabetes Mellitus Type 2: Yes - GENITOURINARY/GYNECOLOGICAL Hx Genitourinary Disorders: Yes Other/Comment: hx of kidney infection - PSYCHIATRIC Hx Anxiety: Yes Hx Substance Use: No - SURGICAL HISTORY Hx Surgeries: Yes Hx Hysterectomy: Yes (partial 2014) - ANESTHESIA Hx Anesthesia: Yes Hx Anesthesia Reactions: No Meds Home Medications: Home Medication List Medication Instructions Recorded Confirmed Type Ciprofloxacin [Cipro] 1 tab PO BID #14 tab 12/22/18 Rx traMADol [Ultram] 50 mg PO Q6 #20 tab 12/22/18 Rx Allergies/Adverse Reactions: Allergies Allergy/AdvReac Type Severity Reaction Status Date / Time No Known Allergies Allergy Verified 06/09/17 08:35 Results - Vital Signs Recent Vital Signs: Last Vital Signs Temp 98.1 F 12/22/18 18:07 Pulse 87 12/22/18 18:07 Resp 18 12/22/18 18:07 BP 151/81 H 12/22/18 18:07 Pulse Ox 98 12/22/18 18:29 - Labs Result Diagrams: 12/22/18 11:12 12/22/18 11:12 Labs: Laboratory Results - last 24 hr 12/22/18 12/22/18 12/22/18 10:42 11:06 11:12 WBC 14.7 H RBC 5.02 Hgb 13.8 Hct 40.9 MCV 81.5 MCH 27.4 MCHC 33.7 RDW 13.9 Plt Count 326 MPV 9.0 Neut % (Auto) 72.4 Lymph % (Auto) 19.9 L [place] % (Auto) 7.0 Eos % (Auto) 0.1 Baso % (Auto) 0.6 Neut # (Auto) 10.6 H Lymph # (Auto) 2.9 [place] # (Auto) 1.0 H Eos # (Auto) 0.0 Baso # (Auto) 0.1 Sodium Potassium Chloride Carbon Dioxide Anion Gap BUN Creatinine Est GFR ( Amer) Est GFR (Non-Af Amer) POC Glucose (mg/dL) 407 H* Random Glucose Calcium Total Bilirubin AST ALT Alkaline Phosphatase Total Protein Albumin Globulin Albumin/Globulin Ratio Lipase Urine Color Jeni Urine Clarity Hazy Urine pH 5.0 Ur Specific [place] 1.031 H Urine Protein 2+ H Urine Glucose (UA) 3+ H Urine Ketones Trace Urine Blood 3+ H Urine Nitrate Negative Urine Bilirubin Negative Urine Urobilinogen Normal Ur Leukocyte Esterase Neg Urine WBC (Auto) 5 Urine RBC (Auto) 56 H Ur Squamous Epith Cells 6 H Amorphous Sediment Few H B-Hydroxybutyrate Hepatitis A IgM Ab Hep Bs Antigen Hep B Core IgM Ab Hepatitis C Antibody 12/22/18 12/22/18 12/22/18 11:12 13:16 13:25 WBC RBC Hgb Hct MCV MCH MCHC RDW Plt Count MPV Neut % (Auto) Lymph % (Auto) [place] % (Auto) Eos % (Auto) Baso % (Auto) Neut # (Auto) Lymph # (Auto) [place] # (Auto) Eos # (Auto) Baso # (Auto) Sodium 137 Potassium 5.0 Chloride 98 Carbon Dioxide 25 Anion Gap 19 BUN 15 Creatinine 0.7 Est GFR ( Amer) > 60 Est GFR (Non-Af Amer) > 60 POC Glucose (mg/dL) 421 H* Random Glucose 429 H* D Calcium 9.0 Total Bilirubin 0.7 AST 1115 H ALT 236 H D Alkaline Phosphatase 145 H Total Protein 7.6 Albumin 4.5 Globulin 3.1 Albumin/Globulin Ratio 1.5 Lipase 90 Urine Color Urine Clarity Urine pH Ur Specific [place] Urine Protein Urine Glucose (UA) Urine Ketones Urine Blood Urine Nitrate Urine Bilirubin Urine Urobilinogen Ur Leukocyte Esterase Urine WBC (Auto) Urine RBC (Auto) Ur Squamous Epith Cells Amorphous Sediment B-Hydroxybutyrate 0.18 Hepatitis A IgM Ab Negative Hep Bs Antigen Negative Hep B Core IgM Ab Negative Hepatitis C Antibody Negative 12/22/18 16:33 WBC RBC Hgb Hct MCV MCH MCHC RDW Plt Count MPV Neut % (Auto) Lymph % (Auto) [place] % (Auto) Eos % (Auto) Baso % (Auto) Neut # (Auto) Lymph # (Auto) [place] # (Auto) Eos # (Auto) Baso # (Auto) Sodium Potassium Chloride Carbon Dioxide Anion Gap BUN Creatinine Est GFR ( Amer) Est GFR (Non-Af Amer) POC Glucose (mg/dL) 233 H Random Glucose Calcium Total Bilirubin AST ALT Alkaline Phosphatase Total Protein Albumin Globulin Albumin/Globulin Ratio Lipase Urine Color Urine Clarity Urine pH Ur Specific [place] Urine Protein Urine Glucose (UA) Urine Ketones Urine Blood Urine Nitrate Urine Bilirubin Urine Urobilinogen Ur Leukocyte Esterase Urine WBC (Auto) Urine RBC (Auto) Ur Squamous Epith Cells Amorphous Sediment B-Hydroxybutyrate Hepatitis A IgM Ab Hep Bs Antigen Hep B Core IgM Ab Hepatitis C Antibody
[2018-12-22 21:46] VITALS: RESP 20
[2018-12-22] MEDS ORDERED: INSULIN LISPRO 50 UNIT SQ SCH (22:00)
[2018-12-22] MEDS ORDERED: Morphine 4 MG/ML VIAL IV PRN (22:49)
[2018-12-22] MEDS ORDERED: (Novolog) Insulin Aspart, Recombinant 100 u/ml 10 ml vial SC SCH (22:54)
[2018-12-22] MEDS: (Novolog) Insulin Aspart, Recombinant 100 u/ml 10 ml vial SC SCH (23:06)
[2018-12-23] MEDS ORDERED: (Novolog) Insulin Aspart, Recombinant 100 u/ml 10 ml vial SC SCH (07:30)
[2018-12-23] MEDS: (Novolog) Insulin Aspart, Recombinant 100 u/ml 10 ml vial SC SCH ×4 (09:13→21:58)
[2018-12-23] MEDS ORDERED: INSULIN LISPRO 80 UNIT SQ SCH (10:00)
[2018-12-23] MEDS ORDERED: cefTRIAXone IV 1 gm in Dextros 1 GM in Dextrose 5% In Water 50 ML IVPB SCH (10:00)
[2018-12-23] MEDS ORDERED: Home Med 1 UNIT (Linaclotide [Linzess] 290 MCG) PO SCH (10:00)
[2018-12-23] MEDS ORDERED: cefTRIAXone IV 1 gm in Dextros 50 ML IVPB SCH (10:00)
[2018-12-23] MEDS ORDERED: Home Med 1 UNIT (Omeprazole [Omeprazole] 40 MG) PO SCH (10:00)
[2018-12-23] MEDS: Enoxaparin 40 mg Syringe SC SCH (10:17)
[2018-12-23] MEDS: Meropenem 1 GM in Sodium Chloride 0.9% 100 ML IVPB SCH ×2 (10:19→17:59)
[2018-12-23] MEDS: Pantoprazole 40 mg EC Tab PO SCH (10:21)
--- NOTE | 2018-12-23 14:34 | CP.PCM.CON ---
History of Present Illness - History of Present Illness History of Present Illness: dictated Past Patient History - Infectious Disease Hx of Infectious Diseases: None - Past Social History Smoking Status: Former Smoker - CARDIAC Hx Hypercholesterolemia: Yes Hx Hypertension: Yes - ENDOCRINE/METABOLIC Hx Endocrine Disorders: Yes Hx Diabetes Mellitus Type 2: Yes - GENITOURINARY/GYNECOLOGICAL Hx Genitourinary Disorders: Yes Other/Comment: hx of kidney infection - PSYCHIATRIC Hx Anxiety: Yes Hx Substance Use: No - SURGICAL HISTORY Hx Surgeries: Yes Hx Hysterectomy: Yes (partial 2014) - ANESTHESIA Hx Anesthesia: Yes Hx Anesthesia Reactions: No Meds Home Medications: Home Medication List Medication Instructions Recorded Confirmed Type Ciprofloxacin [Cipro] 1 tab PO BID #14 tab 12/22/18 Rx Allergies/Adverse Reactions: Allergies Allergy/AdvReac Type Severity Reaction Status Date / Time No Known Allergies Allergy Verified 06/09/17 08:35 - Medications Medications: Current Medications Enoxaparin Sodium (Lovenox) 40 mg SC DAILY [facility] Last Admin: 12/23/18 10:17 Dose: 40 mg Home Med (Linaclotide [Linzess]) 290 mcg PO DAILY [facility] Meropenem 1 gm/ Sodium (Chloride) 100 mls @ 100 mls/hr IVPB Q8H [facility]; Protocol Last Admin: 12/23/18 10:19 Dose: 100 mls/hr Insulin Aspart (Novolog) 0 unit SC ACHS [facility]; Protocol Last Admin: 12/23/18 12:54 Dose: 4 unit Losartan Potassium (Cozaar) 50 mg PO DAILY [facility] Last Admin: 12/23/18 10:18 Dose: 50 mg Morphine Sulfate (Morphine) 1 mg IV Q6 PRN PRN Reason: Pain, moderate (4-7) Pantoprazole Sodium (Protonix Ec Tab) 40 mg PO DAILY [facility] Last Admin: 12/23/18 10:21 Dose: 40 mg Results - Vital Signs Recent Vital Signs: Last Vital Signs Temp 98.0 F 12/23/18 08:31 Pulse 80 12/23/18 08:31 Resp 20 12/23/18 08:31 BP 151/88 H 12/23/18 08:31 Pulse Ox 97 12/23/18 08:31 - Labs Result Diagrams: 12/22/18 11:12 12/22/18 11:12 Labs: Laboratory Results - last 24 hr 12/22/18 12/22/18 12/23/18 16:33 21:31 02:06 POC Glucose (mg/dL) 233 H 436 H* 325 H 12/23/18 12:06 POC Glucose (mg/dL) 339 H
[2018-12-23] MEDS: Sodium Chloride 0.9% 1,000 ML IV SCH (14:44)
--- NOTE | 2018-12-23 16:13 | CP.PCM.PN ---
Subjective - Date & Time of Evaluation Date of Evaluation: 12/23/18 - Subjective Subjective: patient examined no nausea no vomiting no fever no diarrhea no dizziness no shortness of breath Objective - Vital Signs/Intake and Output Vital Signs (last 24 hours): Temp Pulse Resp BP Pulse Ox 98.0 F 80 20 151/88 H 97 12/23/18 08:31 12/23/18 08:31 12/23/18 08:31 12/23/18 08:31 12/23/18 08:31 Intake and Output: 12/23/18 12/23/18 06:59 18:59 Intake Total 240 Balance 240 - Medications Medications: Current Medications Enoxaparin Sodium (Lovenox) 40 mg SC DAILY [facility] Last Admin: 12/23/18 10:17 Dose: 40 mg Home Med (Linaclotide [Linzess]) 290 mcg PO DAILY [facility] Meropenem 1 gm/ Sodium (Chloride) 100 mls @ 100 mls/hr IVPB Q8H [facility]; Protocol Last Admin: 12/23/18 10:19 Dose: 100 mls/hr Sodium Chloride (Sodium Chloride 0.9%) 1,000 mls @ 100 mls/hr IV .Q10H [facility] Last Admin: 12/23/18 14:44 Dose: 100 mls/hr Insulin Aspart (Novolog) 0 unit SC ACHS [facility]; Protocol Last Admin: 12/23/18 12:54 Dose: 4 unit Losartan Potassium (Cozaar) 50 mg PO DAILY [facility] Last Admin: 12/23/18 10:18 Dose: 50 mg Morphine Sulfate (Morphine) 1 mg IV Q6 PRN PRN Reason: Pain, moderate (4-7) Last Admin: 12/23/18 14:59 Dose: 1 mg Pantoprazole Sodium (Protonix Ec Tab) 40 mg PO DAILY [facility] Last Admin: 12/23/18 10:21 Dose: 40 mg - Labs Labs: 12/22/18 11:12 12/22/18 11:12 - Constitutional Appears: Well - Head Exam Head Exam: ATRAUMATIC, NORMAL INSPECTION, NORMOCEPHALIC - Eye Exam Eye Exam: EOMI, Normal appearance, PERRL Pupil Exam: NORMAL ACCOMODATION, PERRL - ENT Exam ENT Exam: Mucous Membranes Moist, Normal Exam - Neck Exam Neck Exam: Full ROM, Normal Inspection. absent: Lymphadenopathy - Respiratory Exam Respiratory Exam: Decreased Breath Sounds - Cardiovascular Exam Cardiovascular Exam: REGULAR RHYTHM, +S1, +S2 - GI/Abdominal Exam GI & Abdominal Exam: Soft, Diminished Bowel Sounds - Rectal Exam Rectal Exam: Deferred - Neurological Exam Neurological Exam: Oriented x3 Assessment and Plan - Assessment and Plan (Free Text) Plan: plan discussed with patient and family moderate complexity of care cozaar home med lovenox meropenem morphine novolog protonix ec tab sodium chloride medications reviewed labs reviewed vitals reviewed
[2018-12-23 18:15] LABS: SQUAMOUS EPITHIAL 1 /hpf (0-5); URINE BILIRUBIN NEGATIVE (NEGATIVE); URINE BLOOD 1+ (NEGATIVE); URINE CLARITY Clear (Clear); URINE COLOR Straw (YELLOW); URINE GLUCOSE (UA) 3+ mg/dL (Normal); URINE LEUKOCYTE ESTERASE NEG Leu/uL (Negative); URINE PROTEIN NEGATIVE (NEGATIVE); URINE UROBILINOGEN NORMAL mg/dL (0.2-1.0)
[2018-12-24] MEDS: Sodium Chloride 0.9% 1,000 ML IV SCH ×4 (01:38→20:45)
[2018-12-24] MEDS: Meropenem 1 GM in Sodium Chloride 0.9% 100 ML IVPB SCH ×3 (01:40→17:19)
--- NOTE | 2018-12-24 04:10 | CON ---
DATE: 12/23/2018 HISTORY OF PRESENT ILLNESS: The patient is a 48-year-old female, presented to the emergency room complaining of lower back pain, which was radiating to her buttocks and now, it is radiating to her abdomen on the left side. She denies knowing about kidney stones, but she does have kidney stone, but it is not obstructing. She did say that she was having some blood in the urine that made her come to the hospital and she has had urine infections in the past, but not now, few years back. She denied any dysuria. She did have hematuria, also having back pain and abdominal pain. She denies any chest pain, no shortness of breath. She did have fever and she is in a lot of pain. PAST MEDICAL HISTORY: Significant for diabetes, hypertension, hypercholesterolemia and anxiety. She does say that 3 to 4 years back she had similar episode of hematuria and she came to the hospital and got better with the antibiotics. SOCIAL HISTORY: Negative for smoking or drinking or any drug abuse. PAST SURGICAL HISTORY: Significant for partial hysterectomy for fibroids in the past. REVIEW OF SYSTEMS: She does complain of abdominal pain now. Denies any dysuria now. Hematuria has improved. She still has back pain and left lower pain. Denies any respiratory issues. She is awake and alert. Denies any dizziness. PHYSICAL EXAMINATION: VITAL SIGNS: I find her temperature is 98.5 now, pulse is 86, blood pressure 168/90 and respirations are 20. HEENT: Head is atraumatic and normocephalic. NECK: Supple. LUNGS: Clear. No crackles or rales present. CARDIOPULMONARY: Heart, S1 and S2. Regular. ABDOMEN: Soft. There is mild tenderness on the left CVA. Otherwise, abdomen, there is no guarding and no rigidity. EXTREMITIES: Have no edema. LABORATORY DATA: Labs are noted. Labs show white count is 14.7 yesterday, hemoglobin 13.8, hematocrit 40.9, and platelet count is 326. She is alert, awake, and oriented x3. Her sugars are high at 458. Serology was done, A, B and C are all negative. Beta-hydroxybutyrate is 0.18. UA shows wbc 5, rbc 56. There was 3+ blood yesterday and 2+ protein, 3+ glucose. ASSESSMENT AND PLAN: I placed her on meropenem at this time and urine culture was contaminated. So, we are waiting for it and she also had abdominal CT and abdominal CT shows a 2-mm non-obstructing calculus at lower pole of left kidney. No evidence of hydroureter or . She does have urinary tract infection. She has a calculus, which is nonobstructing, but her pain is severe and it seems like there is a stone. She had an echogenic liver. No evidence of cholelithiasis or cholecystitis. She also had a lumbar spine x-ray, which shows no evidence of acute pathology of lumbar spine. Mild constipation. So, at this time, I will continue meropenem to treat her urinary tract infection and clinically, it looks like pyelonephritis; however, the CAT scan is not suggestive of that. We will follow. Sukhi Trent MD
[2018-12-24] MEDS: (Novolog) Insulin Aspart, Recombinant 100 u/ml 10 ml vial SC SCH ×4 (08:04→21:27)
[2018-12-24] MEDS: Enoxaparin 40 mg Syringe SC SCH (09:27)
[2018-12-24] MEDS: Pantoprazole 40 mg EC Tab PO SCH (09:27)
--- NOTE | 2018-12-24 09:35 | CP.PCM.PN ---
"Subjective - Date & Time of Evaluation Date of Evaluation: 12/24/18 Time of Evaluation: 09:34 - Subjective Subjective: PGY-[address] Victorino Spear's Service Patient seen and examined at bedside. Per nursing no acute events occurred overnight. 48 year old female with a past medical history of diabetes presents to ED complaining of pain to her left lower back that began earlier today. Patient states the pain radiates down to her left buttock area. She describes it as sharp in nature and initially rates it a 5/10 in severity. Patient states she has history of kidney stone and kidney infection. She also reported some nausea in conjunction with the pain. Patient no longer reports any carl blood in her urine or pain upon urination. Patient denies any fevers, chills, chest pain, shortness of breath, headaches, dizziness, or any other complaints. Medical history: dm Family history: Denies Allergies: Denies Social history: Denies alcohol or tobacco use. Denies illicit drug use. Objective - Vital Signs/Intake and Output Vital Signs (last 24 hours): Temp Pulse Resp BP Pulse Ox 98.4 F 74 20 165/74 H 97 12/24/18 07:35 12/24/18 07:35 12/24/18 07:35 12/24/18 07:35 12/24/18 07:35 Intake and Output: 12/24/18 12/24/18 06:59 18:59 Intake Total 1040 Balance 1040 - Medications Medications: Current Medications Enoxaparin Sodium (Lovenox) 40 mg SC DAILY [facility] Last Admin: 12/24/18 09:27 Dose: 40 mg Home Med (Linaclotide [Linzess]) 290 mcg PO DAILY [facility] Meropenem 1 gm/ Sodium (Chloride) 100 mls @ 100 mls/hr IVPB Q8H [facility]; Protocol Last Admin: 12/24/18 09:27 Dose: 100 mls/hr Sodium Chloride (Sodium Chloride 0.9%) 1,000 mls @ 100 mls/hr IV .Q10H [facility] Last Admin: 12/24/18 01:38 Dose: 100 mls/hr Insulin Aspart (Novolog) 0 unit SC ACHS [facility]; Protocol Last Admin: 12/24/18 08:04 Dose: 4 unit Losartan Potassium (Cozaar) 50 mg PO DAILY [facility] Last Admin: 12/24/18 09:27 Dose: 50 mg Morphine Sulfate (Morphine) 1 mg IV Q6 PRN PRN Reason: Pain, moderate (4-7) Last Admin: 12/23/18 21:55 Dose: 1 mg Pantoprazole Sodium (Protonix Ec Tab) 40 mg PO DAILY [facility] Last Admin: 12/24/18 09:27 Dose: 40 mg - Labs Labs: 12/22/18 11:12 12/22/18 11:12 - Head Exam Head Exam: ATRAUMATIC, NORMAL INSPECTION - Eye Exam Eye Exam: EOMI, Normal appearance, PERRL Pupil Exam: NORMAL ACCOMODATION - ENT Exam ENT Exam: Mucous Membranes Moist, Normal Oropharynx - Respiratory Exam Respiratory Exam: Clear to Ausculation Bilateral, NORMAL BREATHING PATTERN. absent: Chest Wall Tenderness, Prolonged Expiratory Phase, Respiratory Distress - Cardiovascular Exam Cardiovascular Exam: REGULAR RHYTHM, +S1, +S2 - GI/Abdominal Exam GI & Abdominal Exam: Soft, Normal Bowel Sounds. absent: Hyperactive Bowel Sounds - Neurological Exam Neurological Exam: Alert, Awake, Oriented x3 - Psychiatric Exam Psychiatric exam: Normal Affect, Normal Mood - Skin Skin Exam: Dry, Intact, Normal Color Assessment and Plan - Assessment and Plan (Free Text) Plan: 1.?Pylonephritis WBC: 14.7 on admission CVA tendersness on exam. Abdominal u/s: echogenic liver suggestive of hepatic steatosis Urine cx: Multiple species likely contiminated Blood cx: Pending final read. Infectious disease Dr. Trent consulted--> Help appreciated Medications: Meropenem 1gm Q8 IVP [facility]OP[facility] 2.hx of Diabetes -Home medications held -ISS -Accuchecks ACHS -Hypoglycemic protocol 3.hx of Hypertension -Continue Cozaar 50mg PO DAILY 4. Tranaminitis AST/ALT |1115/236 Hep panel ordered. Will f/u with results. PPX Lovenox 40mg SC DAILY Protonix 40mg PO DAILY NS @100mls/hr Plan discussed with Attending Dr. Rainer Porter, PGY-2"
[2018-12-24 17:38] LABS: HEPATITIS B SURFACE AG Negative (NEGATIVE)
[2018-12-24 17:44] LABS: HEPATITIS A IGM NEGATIVE (NEGATIVE); HEPATITIS B CORE AB NEGATIVE (NEGATIVE)
[2018-12-24 17:56] LABS: HEPATITIS C ANTIBODY NEGATIVE (NEGATIVE)
--- NOTE | 2018-12-24 19:17 | CP.PCM.PN ---
Subjective - Date & Time of Evaluation Date of Evaluation: 12/24/18 - Subjective Subjective: patient examined today no nausea no vomiting no dizziness no diarrhea no fever no shortness of breath Objective - Vital Signs/Intake and Output Vital Signs (last 24 hours): Temp Pulse Resp BP Pulse Ox 98.9 F 77 20 167/98 H 97 12/24/18 15:00 12/24/18 15:00 12/24/18 15:00 12/24/18 15:00 12/24/18 15:30 Intake and Output: 12/24/18 12/25/18 18:59 06:59 Intake Total 1999 Balance 1999 - Medications Medications: Current Medications Enoxaparin Sodium (Lovenox) 40 mg SC DAILY [facility] Last Admin: 12/24/18 09:27 Dose: 40 mg Meropenem 1 gm/ Sodium (Chloride) 100 mls @ 100 mls/hr IVPB Q8H [facility]; Protocol Last Admin: 12/24/18 17:19 Dose: 100 mls/hr Sodium Chloride (Sodium Chloride 0.9%) 1,000 mls @ 100 mls/hr IV .Q10H [facility] Last Admin: 12/24/18 15:00 Dose: 100 mls/hr Insulin Aspart (Novolog) 0 unit SC ACHS [facility]; Protocol Last Admin: 12/24/18 17:19 Dose: 3 unit Lactulose (Enulose) 20 gm PO HS PRN PRN Reason: Constipation Losartan Potassium (Cozaar) 50 mg PO DAILY [facility] Last Admin: 12/24/18 09:27 Dose: 50 mg Morphine Sulfate (Morphine) 1 mg IV Q6 PRN PRN Reason: Pain, moderate (4-7) Last Admin: 12/24/18 09:33 Dose: 1 mg Pantoprazole Sodium (Protonix Ec Tab) 40 mg PO DAILY [facility] Last Admin: 12/24/18 09:27 Dose: 40 mg - Labs Labs: 12/22/18 11:12 12/22/18 11:12 - Constitutional Appears: Well - Head Exam Head Exam: ATRAUMATIC, NORMAL INSPECTION, NORMOCEPHALIC - Eye Exam Eye Exam: EOMI, Normal appearance, PERRL Pupil Exam: NORMAL ACCOMODATION, PERRL - ENT Exam ENT Exam: Mucous Membranes Moist, Normal Exam - Neck Exam Neck Exam: Full ROM, Normal Inspection. absent: Lymphadenopathy - Respiratory Exam Respiratory Exam: Decreased Breath Sounds - Cardiovascular Exam Cardiovascular Exam: REGULAR RHYTHM, +S1, +S2 - GI/Abdominal Exam GI & Abdominal Exam: Soft, Diminished Bowel Sounds - Rectal Exam Rectal Exam: Deferred - Neurological Exam Neurological Exam: Oriented x3 Assessment and Plan - Assessment and Plan (Free Text) Plan: plan discussed with patient and family moderate complexity of care medications reviewed cozaar enulose lovenox meropenem morphine novolog protonix ec tab sodium chloride vitals reviewed labs reviewed
--- NOTE | 2018-12-24 20:06 | CP.PCM.PN ---
Subjective - Date & Time of Evaluation Date of Evaluation: 12/24/18 Time of Evaluation: 14:45 - Subjective Subjective: dictated Objective - Vital Signs/Intake and Output Vital Signs (last 24 hours): Temp Pulse Resp BP Pulse Ox 98.9 F 77 20 167/98 H 97 12/24/18 15:00 12/24/18 15:00 12/24/18 15:00 12/24/18 15:00 12/24/18 15:30 Intake and Output: 12/24/18 12/25/18 18:59 06:59 Intake Total 1999 Balance 1999 - Medications Medications: Current Medications Enoxaparin Sodium (Lovenox) 40 mg SC DAILY [facility] Last Admin: 12/24/18 09:27 Dose: 40 mg Meropenem 1 gm/ Sodium (Chloride) 100 mls @ 100 mls/hr IVPB Q8H [facility]; Protocol Last Admin: 12/24/18 17:19 Dose: 100 mls/hr Sodium Chloride (Sodium Chloride 0.9%) 1,000 mls @ 100 mls/hr IV .Q10H [facility] Last Admin: 12/24/18 15:00 Dose: 100 mls/hr Insulin Aspart (Novolog) 0 unit SC ACHS [facility]; Protocol Last Admin: 12/24/18 17:19 Dose: 3 unit Lactulose (Enulose) 20 gm PO HS PRN PRN Reason: Constipation Losartan Potassium (Cozaar) 50 mg PO DAILY [facility] Last Admin: 12/24/18 09:27 Dose: 50 mg Morphine Sulfate (Morphine) 1 mg IV Q6 PRN PRN Reason: Pain, moderate (4-7) Last Admin: 12/24/18 09:33 Dose: 1 mg Pantoprazole Sodium (Protonix Ec Tab) 40 mg PO DAILY [facility] Last Admin: 12/24/18 09:27 Dose: 40 mg - Labs Labs: 12/22/18 11:12 12/22/18 11:12
--- NOTE | 2018-12-25 01:13 | PN ---
DATE: 12/24/2018 INFECTIOUS DISEASE FOLLOWUP SUBJECTIVE: The patient still complains of mild left lower quadrant pain. Her CAT showed a nonobstructing stone. I am not sure if that is the way she is having pain, it could be that she passed the stone or it is from other etiology. PHYSICAL EXAMINATION: VITAL SIGNS: T-max is 98.9, pulse 77, blood pressure is 167/98 today, respirations are 20. Her blood pressure is increasing. HEENT: Head is atraumatic, normocephalic. NECK: Supple. LUNGS: Clear. HEART: S1, S2, regular. ABDOMEN: Soft, nontender. No guarding. No rigidity present. EXTREMITIES: Have no edema. She is on meropenem. Blood culture is negative. Urine culture shows contamination and the repeat was ordered yesterday. I am waiting for that. Clinically it looks like pyelonephritis. So we will continue with the meropenem at this time, and hopefully, urine culture will guide us to give her antibiotics, and she still is symptomatic with pain. We will continue treatment as above with IV fluids as well as antibiotics at this time. Sukhi Trent MD
[2018-12-25] MEDS: Sodium Chloride 0.9% 1,000 ML IV SCH (02:02)
[2018-12-25] MEDS: Meropenem 1 GM in Sodium Chloride 0.9% 100 ML IVPB SCH ×2 (02:03→10:41)
[2018-12-25 07:36] LABS: BASO # 0.1 K/uL (0.0-0.2); BASO % 0.5 % (0.0-2.0); EOS # 0.1 K/uL (0.0-0.7); EOS % 0.9 % (0.0-4.0); HEMOGLOBIN 13.7 g/dL (11.0-16.0); LYMPH # 3.7 K/uL (1.0-4.3); LYMPH % 32.9 % (20.0-40.0); MEAN CELL VOLUME 81.2 fL (81.0-99.0); MEAN CORPUSCULAR HEMOGLOBIN 27.9 pg (27.0-31.0); MEAN CORPUSCULAR HGB CONC 34.3 g/dL (33.0-37.0); MEAN PLATELET VOLUME 8.9 fL (7.2-11.7); MONO # 0.7 K/uL (0.0-0.8); MONO % 6.6 % (0.0-10.0); NEUT # 6.6 K/uL (1.8-7.0); NEUT % 59.1 % (50.0-75.0); NRBC % 0.1 % (0.0-2.0); RBC 4.92 Mil/uL (3.80-5.20); RED CELL DISTRIBUTION WIDTH 13.6 % (11.5-14.5); WHITE BLOOD COUNT 11.2 K/uL (4.8-10.8)
[2018-12-25] MEDS: (Novolog) Insulin Aspart, Recombinant 100 u/ml 10 ml vial SC SCH ×2 (08:04→12:30)
[2018-12-25 08:15] LABS: ALB/GLOB RATIO 1.3 (1.0-2.1); ALBUMIN 3.9 g/dL (3.5-5.0); ALT/SGPT 176 U/L (9-52); AST/SGOT 303 U/L (14-36); BLOOD UREA NITROGEN 11 mg/dL (7-17); CALCIUM 9.2 mg/dl (8.6-10.4); GFR NON-AFRICAN AMERICAN > 60
--- NOTE | 2018-12-25 09:39 | CP.PCM.PN ---
"Subjective - Date & Time of Evaluation Date of Evaluation: 12/25/18 Time of Evaluation: 09:39 - Subjective Subjective: PG2 Progress Note for Dr. Spear's Service Patient seen and examined at bedside. Per nursing no acute events occurred overnight. Patient denies any fevers, chills, vaginal discharge, nausea, vomiting, or any other complaints. Objective - Vital Signs/Intake and Output Vital Signs (last 24 hours): Temp Pulse Resp BP Pulse Ox 99.4 F 79 20 155/93 H 94 L 12/25/18 08:38 12/25/18 08:38 12/25/18 08:38 12/25/18 08:38 12/25/18 08:38 Intake and Output: 12/25/18 12/25/18 06:59 18:59 Intake Total 920 Balance 920 - Medications Medications: Current Medications Enoxaparin Sodium (Lovenox) 40 mg SC DAILY [facility] Last Admin: 12/24/18 09:27 Dose: 40 mg Meropenem 1 gm/ Sodium (Chloride) 100 mls @ 100 mls/hr IVPB Q8H [facility]; Protocol Last Admin: 12/25/18 02:03 Dose: 100 mls/hr Sodium Chloride (Sodium Chloride 0.9%) 1,000 mls @ 100 mls/hr IV .Q10H [facility] Last Admin: 12/25/18 02:02 Dose: 100 mls/hr Insulin Aspart (Novolog) 0 unit SC ACHS [facility]; Protocol Last Admin: 12/25/18 08:04 Dose: 4 unit Lactulose (Enulose) 20 gm PO HS PRN PRN Reason: Constipation Losartan Potassium (Cozaar) 50 mg PO DAILY [facility] Last Admin: 12/24/18 09:27 Dose: 50 mg Morphine Sulfate (Morphine) 1 mg IV Q6 PRN PRN Reason: Pain, moderate (4-7) Last Admin: 12/24/18 22:02 Dose: 1 mg Pantoprazole Sodium (Protonix Ec Tab) 40 mg PO DAILY [facility] Last Admin: 12/24/18 09:27 Dose: 40 mg - Labs Labs: 12/25/18 07:22 12/25/18 07:22 - Head Exam Head Exam: ATRAUMATIC, NORMAL INSPECTION, NORMOCEPHALIC - Eye Exam Eye Exam: EOMI, Normal appearance, PERRL. absent: Periorbital tenderness Pupil Exam: NORMAL ACCOMODATION, PERRL. absent: Irregular, Unequal - ENT Exam ENT Exam: Mucous Membranes Moist, Normal Oropharynx - Respiratory Exam Respiratory Exam: Clear to Ausculation Bilateral, NORMAL BREATHING PATTERN. absent: Prolonged Expiratory Phase, Respiratory Distress - Cardiovascular Exam Cardiovascular Exam: REGULAR RHYTHM, RRR, +S1, +S2. absent: Rubs - GI/Abdominal Exam GI & Abdominal Exam: Soft, Normal Bowel Sounds. absent: Hyperactive Bowel Sounds - Extremities Exam Extremities Exam: Full ROM, Normal Inspection. absent: Pedal Edema - Back Exam Back Exam: NORMAL INSPECTION. absent: CVA tenderness (R), paraspinal tenderness - Neurological Exam Neurological Exam: Alert, Awake, CN II-XII Intact, Oriented x3 - Psychiatric Exam Psychiatric exam: Normal Affect, Normal Mood - Skin Skin Exam: Dry, Intact Assessment and Plan - Assessment and Plan (Free Text) Plan: 1.?Pylonephritis WBC: 14.7 on admission CVA tendersness on exam. Abdominal u/s: echogenic liver suggestive of hepatic steatosis Urine cx: Multiple species likely contiminated Repeat Urine cx ordered. Pending final results Blood cx: Pending final read. Infectious disease Dr. Trent consulted--> Help appreciated Medications: Meropenem 1gm Q8 IVP [facility] 2.hx of Diabetes -Home medications held -ISS -Accuchecks ACHS -Hypoglycemic protocol 3.hx of Hypertension -Continue Cozaar 50mg PO DAILY 4. Tranaminitis AST/ALT |1115/236 Hep panel ordered. Will f/u with results. PPX Lovenox 40mg SC DAILY Protonix 40mg PO DAILY NS @100mls/hr Patient stable for discharge. WBC trending down. Afebrile for over 24 hours. Discharge Instructions 1.F/u with PMD within 3-5 days of discharge. 2.Return to hospital for any new or worsening symptoms. Medications: 1.Keflex 500mg PO QID, #40, No refills Plan discussed with Attending Dr. Rainer Porter, PGY-2"
[2018-12-25] MEDS: Pantoprazole 40 mg EC Tab PO SCH (10:40)
[2018-12-25] MEDS: Enoxaparin 40 mg Syringe SC SCH (10:41)
--- NOTE | 2018-12-25 14:29 | CP.PCM.PN ---
Subjective - Date & Time of Evaluation Date of Evaluation: 12/25/18 Time of Evaluation: 14:20 - Subjective Subjective: dictated Objective - Vital Signs/Intake and Output Vital Signs (last 24 hours): Temp Pulse Resp BP Pulse Ox 99.4 F 79 20 155/93 H 94 L 12/25/18 08:38 12/25/18 08:38 12/25/18 08:38 12/25/18 08:38 12/25/18 08:38 Intake and Output: 12/25/18 12/25/18 06:59 18:59 Intake Total 920 Balance 920 - Medications Medications: Current Medications Enoxaparin Sodium (Lovenox) 40 mg SC DAILY [facility] Last Admin: 12/25/18 10:41 Dose: 40 mg Meropenem 1 gm/ Sodium (Chloride) 100 mls @ 100 mls/hr IVPB Q8H [facility]; Protocol Last Admin: 12/25/18 10:41 Dose: 100 mls/hr Sodium Chloride (Sodium Chloride 0.9%) 1,000 mls @ 100 mls/hr IV .Q10H [facility] Last Admin: 12/25/18 02:02 Dose: 100 mls/hr Insulin Aspart (Novolog) 0 unit SC ACHS [facility]; Protocol Last Admin: 12/25/18 12:30 Dose: 6 unit Lactulose (Enulose) 20 gm PO HS PRN PRN Reason: Constipation Last Admin: 12/25/18 10:59 Dose: 20 gm Losartan Potassium (Cozaar) 50 mg PO DAILY [facility] Last Admin: 12/25/18 10:40 Dose: 50 mg Morphine Sulfate (Morphine) 1 mg IV Q6 PRN PRN Reason: Pain, moderate (4-7) Last Admin: 12/24/18 22:02 Dose: 1 mg Pantoprazole Sodium (Protonix Ec Tab) 40 mg PO DAILY [facility] Last Admin: 12/25/18 10:40 Dose: 40 mg - Labs Labs: 12/25/18 07:22 12/25/18 07:22
[2018-12-25 16:06] VITALS: BP 153/85; PULSE 81; TEMP 98.3; O2SAT 99
--- NOTE | 2018-12-25 18:19 | CP.PCM.DIS ---
"Provider - Provider Date of Admission: 12/22/18 17:07 Attending physician: Arcenio Spear MD Consults: 12/22/18 19:38 Infectious Disease Consult Routine Comment: Consulting Provider: Sukhi Trent Consulting Physician: Sukhi Trent Reason for Consult: pylonephritis Hospital Course - Lab Results Lab Results: Micro Results 12/23/18 17:58 Urine,Clean Catch Urine Culture - Final No Growth (<1,000 CFU/ML) 12/23/18 11:18 Blood-Venous Blood Culture - Preliminary NO GROWTH AFTER 48 HOURS 12/22/18 17:25 Urine,Clean Catch Urine Culture - Final 10-50,000 CFU/ML. MULTIPLE SPECIES. PROBABLE CONTAMINATION. Most Recent Lab Values WBC 11.2 K/uL (4.8-10.8) H 12/25/18 07:22 RBC 4.92 Mil/uL (3.80-5.20) 12/25/18 07:22 Hgb 13.7 g/dL (11.0-16.0) 12/25/18 07:22 Hct 39.9 % (34.0-47.0) 12/25/18 07:22 MCV 81.2 fL (81.0-99.0) 12/25/18 07:22 MCH 27.9 pg (27.0-31.0) 12/25/18 07:22 MCHC 34.3 g/dL (33.0-37.0) 12/25/18 07:22 RDW 13.6 % (11.5-14.5) 12/25/18 07:22 Plt Count 322 K/uL (130-400) 12/25/18 07:22 MPV 8.9 fL (7.2-11.7) 12/25/18 07:22 Neut % (Auto) 59.1 % (50.0-75.0) 12/25/18 07:22 Lymph % (Auto) 32.9 % (20.0-40.0) 12/25/18 07:22 Reagan % (Auto) 6.6 % (0.0-10.0) 12/25/18 07:22 Eos % (Auto) 0.9 % (0.0-4.0) 12/25/18 07:22 Baso % (Auto) 0.5 % (0.0-2.0) 12/25/18 07:22 Neut # (Auto) 6.6 K/uL (1.8-7.0) 12/25/18 07:22 Lymph # (Auto) 3.7 K/uL (1.0-4.3) 12/25/18 07:22 Reagan # (Auto) 0.7 K/uL (0.0-0.8) 12/25/18 07:22 Eos # (Auto) 0.1 K/uL (0.0-0.7) 12/25/18 07:22 Baso # (Auto) 0.1 K/uL (0.0-0.2) 12/25/18 07:22 Sodium 139 mmol/L (132-148) 12/25/18 07:22 Potassium 4.6 mmol/L (3.6-5.2) 12/25/18 07:22 Chloride 103 mmol/L (98-107) 12/25/18 07:22 Carbon Dioxide 28 mmol/L (22-30) 12/25/18 07:22 Anion Gap 13 (10-20) 12/25/18 07:22 BUN 11 mg/dL (7-17) 12/25/18 07:22 Creatinine 0.9 mg/dL (0.7-1.2) 12/25/18 07:22 Est GFR ( Amer) > 60 12/25/18 07:22 Est GFR (Non-Af Amer) > 60 12/25/18 07:22 POC Glucose (mg/dL) 459 mg/dL (65-110) H* 12/25/18 11:41 Random Glucose 312 mg/dL (65-105) H D 12/25/18 07:22 Calcium 9.2 mg/dl (8.6-10.4) 12/25/18 07:22 Phosphorus 3.5 mg/dL (2.5-4.5) 12/25/18 07:22 Magnesium 1.9 mg/dL (1.6-2.3) 12/25/18 07:22 Total Bilirubin 0.8 mg/dL (0.2-1.3) 12/25/18 07:22 AST 303 U/L (14-36) H D 12/25/18 07:22 ALT 176 U/L (9-52) H D 12/25/18 07:22 Alkaline Phosphatase 131 U/L (38-126) H 12/25/18 07:22 Total Protein 7.0 g/dL (6.3-8.3) 12/25/18 07:22 Albumin 3.9 g/dL (3.5-5.0) 12/25/18 07:22 Globulin 3.0 gm/dL (2.2-3.9) 12/25/18 07:22 Albumin/Globulin Ratio 1.3 (1.0-2.1) 12/25/18 07:22 Lipase 90 U/L (23-300) 12/22/18 11:12 Urine Color Straw (YELLOW) 12/23/18 17:58 Urine Clarity Clear (Clear) 12/23/18 17:58 Urine pH 6.0 (5.0-8.0) 12/23/18 17:58 Ur Specific [place] 1.008 (1.003-1.030) 12/23/18 17:58 Urine Protein Negative mg/dL (NEGATIVE) 12/23/18 17:58 Urine Glucose (UA) 3+ mg/dL (Normal) H 12/23/18 17:58 Urine Ketones Negative mg/dL (NEGATIVE) 12/23/18 17:58 Urine Blood 1+ (NEGATIVE) H 12/23/18 17:58 Urine Nitrate Negative (NEGATIVE) 12/23/18 17:58 Urine Bilirubin Negative (NEGATIVE) 12/23/18 17:58 Urine Urobilinogen Normal mg/dL (0.2-1.0) 12/23/18 17:58 Ur Leukocyte Esterase Neg Juvencio/uL (Negative) 12/23/18 17:58 Urine WBC (Auto) 5 /hpf (0-5) 12/22/18 11:06 Urine RBC (Auto) < 1 /hpf (0-3) 12/23/18 17:58 Ur Squamous Epith Cells 1 /hpf (0-5) 12/23/18 17:58 Amorphous Sediment Few /ul (<OCC) H 12/22/18 11:06 B-Hydroxybutyrate 0.18 mM (0.02-0.27) 12/22/18 11:12 Hepatitis A IgM Ab Negative (NEGATIVE) 12/24/18 16:37 Hep Bs Antigen Negative (NEGATIVE) 12/24/18 16:37 Hep B Core IgM Ab Negative (NEGATIVE) 12/24/18 16:37 Hepatitis C Antibody Negative (NEGATIVE) 12/24/18 16:37 - Hospital Course Hospital Course: 1.?Pylonephritis WBC: 14.7 on admission CVA tendersness on exam. Abdominal u/s: echogenic liver suggestive of hepatic steatosis Urine cx: Multiple species likely contiminated Repeat Urine cx ordered. Pending final results Blood cx: Pending final read. Infectious disease Dr. Trent consulted--> Help appreciated Medications: Meropenem 1gm Q8 IVP SOPHY 2.hx of Diabetes -Home medications held -ISS -Accuchecks ACHS -Hypoglycemic protocol 3.hx of Hypertension -Continue Cozaar 50mg PO DAILY 4. Tranaminitis AST/ALT |1115/236 Hep panel ordered. Will f/u with results. PPX Lovenox 40mg SC DAILY Protonix 40mg PO DAILY NS @100mls/hr Patient stable for discharge. WBC trending down. Afebrile for over 24 hours. Discharge Instructions 1.F/u with PMD within 3-5 days of discharge. 2.Return to hospital for any new or worsening symptoms. Medications: 1.Keflex 500mg PO QID, #40, No refills Discharge Exam - Head Exam Head Exam: ATRAUMATIC, NORMAL INSPECTION, NORMOCEPHALIC Discharge Plan - Discharge Medications Prescriptions: Cephalexin [Keflex] 500 mg PO QID #40 capsule - Follow Up Plan Condition: FAIR Disposition: HOME/ ROUTINE Instructions: Ciprofloxacin (Systemic), Diabetes Exchange Diet, Urinary Tract Infection, Adult (DC), Diabetes Diet , Hyperglycemia, Adult (DC), Cephalexin Additional Instructions: Follow up with PMD and Cat Skinner within 1-2 days. Return to ED if feel worse. Discharge Instructions 1.F/u with PMD within 3-5 days of discharge. 2.Return to hospital for any new or worsening symptoms. Medications: 1.Keflex 500mg PO QID, #40, No refills Referrals: Jeff Spear MD [Staff Provider] -"
--- NOTE | 2018-12-25 20:23 | PN ---
DATE: 12/25/2018 SUBJECTIVE: The patient is feeling a lot better. She still has some pain on the back. She had a BM also and she fees better. Her urine has no dysuria or frequency now and she probably will be going home. PHYSICAL EXAMINATION: VITAL SIGNS: T-max is 99.4, heart rate of 79, blood pressure 155/93, respirations are 20. HEAD: Atraumatic, normocephalic. NECK: Supple. LUNGS: Clear. HEART: S1, S2 is regular. ABDOMEN: Soft, nontender. No guarding, no rigidity present. EXTREMITIES: Have no edema, clubbing or cyanosis. Her cultures came out negative blood and urine culture at this time. I would treat her as pyelonephritis and give her Keflex 500 four times a day for 10 days and also a probiotic and will follow. To follow with the PMD. Sukhi Trent MD
== END 2018-12-25 16:48 | disposition home or self-care (01) ==
LOC: C.ER 09:51 → C.9E 17:07 → C.6T 20:11
PROVIDERS: ADMIT Internal Medicine Nephrology; ATTEND Internal Medicine Nephrology
DX: N12 Tubulo-interstitial nephritis, not specified as acute or chronic (principal); I10 Essential (primary) hypertension; E78.00 Pure hypercholesterolemia, unspecified; K59.00 Constipation, unspecified; Z87.891 Personal history of nicotine dependence; N20.0 Calculus of kidney; E11.65 Type 2 diabetes mellitus with hyperglycemia
CPT/HCPCS: 36415; 72100; 74176; 76705; 80053; 80074; 81001; 82009; 82948; 83690; 85025; 87040; 87086; 96360; 96365; 96374; 99285; J0696; J1650; J1885; J2185; J2270; J7030